=== PATIENT | female | born 1970 | race Caucasian/White ===

== ENCOUNTER 2017-03-03 18:09 | Emergency (ER) | payer MEDICAID ==
--- NOTE | 2017-03-03 18:59 | EDPHY ---
H & P Time Seen by Provider: 03/03/17 18:50 HPI/ROS: This patient was walking her large dog who spotted rabbit and lunged causing the patient stepped into a pothole and invert her left ankle with pain primarily to the dorsum of the midfoot and minimal line ankle pain. The incident occurred shortly prior to arrival and she came in by private vehicle for evaluation. She took ibuprofen Tylenol prior to arrival with minimal improvement. She reports pain is moderate baseline. The pain worsens with weight-bearing. No other exacerbating or alleviating factors. ROS: Neuro: No numbness to the affected extremity. Musculoskeletal: No upper extremity injuries from the fall that accompanied this injury. And no proximal leg pain in the affected extremity or knee pain. Integumentary: No lacerations or abrasions. 5 point ROS is otherwise negative. Smoking Status: Current every day smoker Physical Exam: Physical Exam Vital signs are normal. General: No acute distress HEENT: Atraumatic. Eyes: Pupils equal and react to light. Extraocular motions are intact. Lungs: No respiratory distress. Cardiac: Brisk capillary refill is intact throughout. Pulses are 2+ and symmetric in the affected extremity. Skin: No rash or pallor. Extremities: Atraumatic normal except for left lower extremity Left lower extremity: Patient has swelling, ecchymosis and tenderness to the left midfoot region. No 5th metatarsal tenderness. No medial ankle tenderness. She has minimal tenderness anterior and inferior to the lateral malleolus without swelling or ecchymosis. No laxity on anterior drawer. No toe trauma. Achilles is nontender. No proximal leg tenderness. Knee exam is normal Neuro: Alert and oriented x3 with no sensorimotor deficits. Initial differential diagnosis: Foot fracture, foot sprain, ankle sprain, ankle fracture Constitutional: Initial Vital Signs Temperature (C) 36.6 C 03/03/17 18:29 Heart Rate 84 03/03/17 18:29 Respiratory Rate 18 03/03/17 18:29 Blood Pressure 108/56 L 03/03/17 18:29 O2 Sat (%) 98 03/03/17 18:29 O2 Delivery Mode Room Air Allergies/Adverse Reactions: No Known Allergies Allergy (Unverified 02/03/16 21:01) Home Medications: Medication Instructions Recorded NK [No Known Home Meds] 02/03/16 MDM/Departure - MDM Diagnostics: Foot x-rays: Negative for fracture by my interpretation Ankle x-ray: Negative for fracture by my interpretation Imaging Results: Imaging Impressions Ankle X-Ray 03/03/17 18:28 Impression: Negative left ankle series. Foot X-Ray 03/03/17 18:28 Impression: Negative left foot radiographs. Imaging: I viewed and interpreted images myself ED Course/Re-evaluation: Discussion: Patient with very minimal ankle sprain findings and prominent foot skin findings without fracture by radiograph. I counseled regarding this. We placed her in a postop shoe with plan for cane or crutches for partial weight- bearing until she improves. I explained that she should follow up with the materials inspector if she is not having significant improvement in the symptoms with treatment plan over the next week or so. - Depart Disposition: Home, Routine, Self-Care Clinical Impression: Foot sprain Qualifiers: Encounter type: initial encounter Laterality: left Qualified Code(s): S93.602A - Unspecified sprain of left foot, initial encounter Condition: Good Instructions: Crutch Instructions (ED), Foot Sprain (ED) Additional Instructions: Diagnosis: Foot sprain Plan: Ice 20 minutes at a time 3 times a day for the next few days Ibuprofen Tylenol for pain as needed Cane or crutches for ambulation until he feel improved Foot brace-call the postop shoe until your symptoms improve. Limit activity until symptoms improve Symptoms should improve significantly over the next week. If you're not improving, call the flight control specialist (Dr. Hazel) listed below to arrange follow- up appointment for further evaluation. Referrals: NONE *PRIMARY CARE P,. [Primary Care Provider] - As per Instructions Rolando King MD [Medical Doctor] - As per Instructions Akua Hazel DPM [Doctor of Podiatric Medicine] - As per Instructions
[2017-03-03 19:16] VITALS: BP 103/57; PULSE 69; RESP 16; TEMP 98.2; O2SAT 96
== END 2017-03-03 19:08 | disposition home or self-care (01) ==
LOC: CED 18:09
DX: S93.602A Unspecified sprain of left foot, initial encounter (principal); F17.200 Nicotine dependence, unspecified, uncomplicated; X58.XXXA Exposure to other specified factors, initial encounter; Y99.8 Other external cause status; Y93.01 Activity, walking, marching and hiking
CPT/HCPCS: 73610-PO; 73630-PO; L3260